=== PATIENT | female | born 1955 | race Two or more races ===

== ENCOUNTER 2019-02-04 11:55 | Emergency (ER) | payer MEDICAID ==
[~2019-02-04] VITALS: Ht 149.9 cm; Wt 79.4 kg
[2019-02-04] MEDS ORDERED: LIDOCAINE 1% HCL (LOCAL ANESTH.) INJ 20ML MDV ONE (13:19)
[2019-02-04] MEDS ORDERED: cefTRIAXone 1GM/50ML D5W 50 ML IV ONE (13:30)
[2019-02-04] MEDS ORDERED: TETANUS-DIPTH-ACEL PERTUSSIS 0.5ML SYRG IM ONE (13:30)
[2019-02-04 14:18] VITALS: BP 114/58
== END 2019-02-04 14:55 | disposition home or self-care (01) ==
LOC: ER 11:55 → EDBD 11:55 → ER 14:55
DX: S61.412A Laceration without foreign body of left hand, initial encounter (principal); E11.9 Type 2 diabetes mellitus without complications; I10 Essential (primary) hypertension; W26.8XXA Contact with other sharp object(s), not elsewhere classified, initial encounter; Y93.89 Activity, other specified; Y92.89 Other specified places as the place of occurrence of the external cause; Y99.8 Other external cause status
CPT/HCPCS: 12002; 73130; 90471; 90715; 96365; 99283; J0696; J2001

== ENCOUNTER 2023-02-27 12:22 | Inpatient (IN) | payer OTHER, MEDICAID ==
[~2023-02-27] VITALS: Ht 149.9 cm; Wt 69.4 kg
[2023-02-27 12:38] VITALS: BP 150/109; RESP 18; O2SAT 97
[2023-02-27 12:40] VITALS: PULSE 67
[2023-02-27 13:44] LABS: Basophils # (auto) 0.1 10 ^3/uL (0-0.2); Basophils % (auto) 0.8 % (0.0-2.0); Eosinophils # (auto) 0.2 10 ^3/uL (0-0.8); Hematocrit 40.9 % (36.0-46.0); Hemoglobin 13.5 g/dL (12.2-16.2); Lymphocytes # (auto) 2.1 10 ^3/uL (0.4-5.4); Lymphocytes % (auto) 27.8 % (10.0-50.0); Mean Corpuscular Hemoglobin 27.7 pg (28.0-32.0); Mean Corpuscular Volume 84.1 fL (80.0-100.0); Monocytes # (auto) 0.4 10 ^3/uL (0-1.3); Monocytes % (auto) 5.7 % (0.0-12.0); Neutrophils # (auto) 4.8 10 ^3/uL (1.6-8.6); Neutrophils % (auto) 62.7 % (37.0-80.0); Nucleated Red Blood Cells % 0.1 %; Red Blood Cells 4.86 10^6/uL (4.0-5.20); Red Cell Distribution Width 14.8 % (11.8-14.3); White Blood Cell 7.7 10^3/uL (4.4-10.8)
[2023-02-27 13:54] LABS: Alanine Aminotransferase 18 U/L (7-40); Albumin 4.2 g/dL (3.2-4.8); Alkaline Phosphatase 87 U/L (46-116); Anion Gap 4 (5-15); Aspartate Aminotransferase 19 U/L (13-40); BUN/Creatinine Ratio 20.6 (10.0-20.0); Bilirubin, Total 0.4 mg/dL (0.2-1.0); Blood Urea Nitrogen 13 mg/dL (9-23); Calcium 8.9 mg/dL (8.7-10.4); Carbon Dioxide 30 mmol/L (20-30); Chloride 104 mmol/L (98-107); Glucose 78 mg/dL (74-106); Lipase 54 U/L (12-53); Potassium 3.8 mmol/L (3.5-5.1); Sodium 138 mmol/L (136-145); Total Protein 7.1 g/dL (5.7-8.2)
[2023-02-27 14:09] LABS: Urine Bacteria NONE SEEN /hpf (None Seen); Urine Blood Negative /uL (Negative); Urine Clarity Clear (Clear); Urine Color Yellow (Yellow); Urine Hyaline Cast FEW /lpf (0 - 2); Urine Mucus FEW (None Seen); Urine Protein, UAD Negative (Negative); Urine Urobilinogen Normal (Negative); Urine WBC 1 /hpf (0 - 5); Urine pH 5.5 (5.0-8.0)
[2023-02-27] MEDS ORDERED: cefTRIAXone 1GM/50ML D5W 50 ML IV ONE (14:30)
[2023-02-27] MEDS ORDERED: metroNIDAZOLE 500MG/100ML 100 ML IV ONE (14:30)
[2023-02-27] MEDS ORDERED: SODIUM CHLORIDE 0.9% 1,000 ML IV SCH (18:00)
[2023-02-27] MEDS ORDERED: ACCU-CHEK COMFORT CURVE STRIP VI SCH (18:00)
[2023-02-27] MEDS ORDERED: ONDANSETRON HCL 4 MG/2 ML VIAL IV PRN (18:00)
[2023-02-27] MEDS ORDERED: InsuLIN REG 1unit/0.01ml Soln (100units/ml) SC SCH (18:00)
[2023-02-27] MEDS ORDERED: DEXTROSE (50%) 50ML SYRG IV PRN (18:00)
[2023-02-27] MEDS ORDERED: DOCUSATE SOD 100 MG CAP PO PRN (18:00)
[2023-02-27] MEDS ORDERED: MORPHINE SULFATE INJ 2 MG/ml SYRG IV PRN (18:00)
[2023-02-27] MEDS ORDERED: PIPERACILLIN-TAZOB 3.375GM 100 ML IV SCH (22:00)
== END 2023-02-27 22:20 | disposition left against medical advice (07) | DRG 392 ==
LOC: ER 12:22 → OVERFLOW 18:06
PROVIDERS: ADMIT Nurse Practitioner Family; ATTEND Nurse Practitioner Family
DX: R10.9 Unspecified abdominal pain (principal); E03.9 Hypothyroidism, unspecified; E11.9 Type 2 diabetes mellitus without complications; I10 Essential (primary) hypertension; R74.8 Abnormal levels of other serum enzymes; Z53.29 Procedure and treatment not carried out because of patient's decision for other reasons
CPT/HCPCS: 36415; 74176; 76705; 80053; 81001; 83605; 83690; 84484; 85025; 87040; 93005; G0378; J0696; J3490